=== PATIENT | female | born 1990 | race Caucasian/White ===

== ENCOUNTER 2019-01-15 19:40 | Emergency (ER) | payer BC ==
--- NOTE | 2019-01-15 20:09 | EDM.PDOC ---
ED HPI GENERAL MEDICAL PROBLEM - General Chief Complaint: Genitourinary Problem Stated Complaint: POSS UTI Time Seen by Provider: 01/15/19 19:44 Source of Information: Reports: Patient, RN Notes Reviewed History Limitations: Reports: No Limitations - History of Present Illness INITIAL COMMENTS - FREE TEXT/NARRATIVE: Patient is a 28-year-old female presents to the ED for the evaluation of possible UTI. The patient noticed these symptoms starting earlier today, with dysuria and frequency. The patient notes that she is on an extended car trip and they're traveling back to [place]. She thinks that she's been getting adequate hydration, however she's been driving so she might not be drinking as much fluids as she normally does. She denies any back or abdominal pain, she also denies any fever or chills at this time. She states she has had UTIs in the past, and has been placed on Cipro and this usually takes care of the infection. - Related Data Allergies Allergy/AdvReac Type Severity Reaction Status Date / Time No Known Allergies Allergy Verified 01/15/19 19:48 Home Meds: Home Meds Adalimumab [Humira] 1 dose INJECT ASDIRECTED 01/15/19 [History] Control. 1 tab PO DAILY 01/15/19 [History] Past Medical History Gastrointestinal History: Reports: Other (See Below) Other Gastrointestinal History: Crohn's disease - Past Surgical History HEENT Surgical History: Reports: Adenoidectomy, Tonsillectomy Social & Family History - Tobacco Use Smoking Status *Q: Never Smoker Second Hand Smoke Exposure: No - Caffeine Use Caffeine Use: Reports: Coffee - Recreational Drug Use Recreational Drug Use: No ED ROS GENERAL - Review of Systems Review Of Systems: See Below Constitutional: Denies: Fever, Chills HEENT: Reports: No Symptoms Respiratory: Reports: No Symptoms Cardiovascular: Reports: No Symptoms Endocrine: Reports: No Symptoms GI/Abdominal: Reports: No Symptoms : Reports: Dysuria, Frequency. Denies: Discharge, Flank Pain Musculoskeletal: Reports: No Symptoms Skin: Reports: No Symptoms Neurological: Reports: No Symptoms Psychiatric: Reports: No Symptoms Hematologic/Lymphatic: Reports: No Symptoms ED EXAM, RENAL/ - Physical Exam Exam: See Below Exam Limited By: No Limitations General Appearance: Alert, WD/WN, No Apparent Distress Respiratory/Chest: No Respiratory Distress, Lungs Clear, Normal Breath Sounds, No Accessory Muscle Use, Chest Non-Tender Cardiovascular: Normal Peripheral Pulses, Regular Rate, Rhythm, No Murmur GI/Abdominal: Normal Bowel Sounds, Soft, No Distention, No Mass, Tender ( Suprapubic) Extremities: Normal Inspection, Normal Capillary Refill Neurological: Alert, Oriented, Normal Cognition, No Motor/Sensory Deficits Psychiatric: Normal Affect, Normal Mood Skin Exam: Warm, Dry, Intact, Normal Color, No Rash Course - Vital Signs Last Recorded V/S: Last Vital Signs Temp 98.2 F 01/15/19 19:52 Pulse 76 01/15/19 19:52 Resp 16 01/15/19 19:52 BP 124/94 H 01/15/19 19:52 Pulse Ox 100 01/15/19 19:52 - Orders/Labs/Meds Labs: Laboratory Tests 01/15/19 Range/Units 19:53 Urine Color Yellow (Yellow) Urine Appearance Clear (Clear) Urine pH 7.0 (5.0-8.0) Ur Specific [place] 1.010 (1.005-1.030) Urine Protein Negative (Negative) Urine Glucose (UA) Negative (Negative) Urine Ketones Negative (Negative) Urine Occult Blood Negative (Negative) Urine Nitrite Negative (Negative) Urine Bilirubin Negative (Negative) Urine Urobilinogen 0.2 (0.2-1.0) Ur Leukocyte Esterase 2+ H (Negative) Urine RBC 0-5 (0-5) /hpf Urine WBC 5-10 H (0-5) /hpf Ur Squamous Epith Cells 0-5 (0-5) /hpf Urine Bacteria Few (FEW) /hpf Urine Mucus Not seen (FEW) /hpf - Re-Assessments/Exams Free Text/Narrative Re-Assessment/Exam: 01/15/19 20:08 Patient presents to the ED for evaluation of a possible UTI. A UA was obtained at time of triage, will wait to see what the results show, we will likely start her on antibiotics and provide her prescriptions through [facility], as they are traveling. 01/15/19 20:27 Patients UA is done and demonstrates 2+ leuk est, and 5-10 WBC with no contamination or nitrites. I will start the patient on antibiotics, will provide the patient with a script through [facility] for Cipro 500mg for 5 days. Departure - Departure Time of Disposition: 20:29 Disposition: Home, Self-Care 01 Condition: Fair Clinical Impression: UTI (urinary tract infection) Qualifiers: Urinary tract infection type: urethritis Qualified Code(s): N34.2 - Other urethritis - Discharge Information *PRESCRIPTION DRUG MONITORING PROGRAM REVIEWED*: No *COPY OF PRESCRIPTION DRUG MONITORING REPORT IN PATIENT WOO: No Instructions: Urinary Tract Infection, Adult, [id number] Referrals: PCP,Not In Area [Primary Care Provider] - Forms: ED Department Discharge Additional Instructions: You have been evaluated in the ED today for a possible UTI. Your UA was positive for leukocyte esterase and white blood cells, which is consistent with a urethritis-type urinary tract infection at this time. You have been provided with a prescription for ciprofloxacin, 500 mg twice a day for 5 days. Please return to the ED if your symptoms should change or worsen.
== END 2019-01-15 20:40 | disposition home or self-care (01) ==
LOC: JD.ED 19:40
DX: N34.2 Other urethritis (principal); Z98.890 Other specified postprocedural states
CPT/HCPCS: 81001; 99283